=== PATIENT | female | born 1940 | race Caucasian/White ===

== ENCOUNTER 2020-12-12 18:34 | Emergency (ER) | payer MEDICARE, MEDICAID, SELFPAY ==
[~2020-12-12] VITALS: Ht 162.6 cm; Wt 63.5 kg
[2020-12-12 18:59] VITALS: BP_SYST 160
[2020-12-12 19:40] LABS: BASOPHILS % (AUTO) 0.4 % (0.0-2.0); EOSINOPHILS % (AUTO) 0.1 % (0.0-4.0); HEMATOCRIT 42.9 % (36-48); HEMOGLOBIN 14.3 g/dL (12.0-16.0); LYMPHOCYTES # (AUTO) 1.1 K/uL (1.0-5.5); LYMPHOCYTES % (AUTO) 14.4 % (20.5-51.5); MEAN CORPUSCULAR HEMOGLOBIN 30 pg (27-31); MEAN CORPUSCULAR HGB CONC 33 % (32-36); MEAN CORPUSCULAR VOLUME 90 fL (79.0-98.0); MONOCYTES # (AUTO) 0.9 K/uL (0.0-1.0); MONOCYTES % (AUTO) 11.5 % (1.7-9.3); NEUTROPHILS # (AUTO) 5.5 K/uL (1.8-7.7); NEUTROPHILS % (AUTO) 73.6 % (40.0-70.0); PLATELET COUNT (AUTO) 109 K/uL (130-430); RED BLOOD CELL COUNT(AUTO) 4.78 MIL/uL (4.2-6.2); RED CELL DISTRIBUTION WIDTH 13.4 % (9.0-15.0); WHITE BLOOD COUNT (AUTO) 7.5 K/uL (4.8-10.8)
[2020-12-12 20:00] LABS: ANION GAP 10 (5-15); CALCIUM 8.3 mg/dL (8.4-11.0); CHLORIDE 100 mmol/L (98-107); CREATININE 1.12 mg/dL (0.55-1.30); GLUCOSE 99 mg/dL (70-99); POTASSIUM 3.4 mmol/L (3.5-5.1); SODIUM SERUM 137 mmol/L (136-145); UREA NITROGEN, BLOOD 29 mg/dL (8-21)
[2020-12-12 20:07] LABS: ALANINE AMINOTRANSFERASE 60 U/L (12-78); ALBUMIN 3.4 g/dL (3.4-4.8); ASPARTATE AMINOTRANSFERASE 59 U/L (10-37); LACTATE DEHYDROGENASE 289 U/L (81-234); TOTAL BILIRUBIN 0.5 mg/dL (0.0-1.0)
[2020-12-12 20:35] LABS: PROTHROMBIN TIME 10.2 SECS (9.5-12.5)
[2020-12-12 21:45] VITALS: BP_SYST 144
[2020-12-12] MEDS ORDERED: LEVO175T7 PO (22:00)
[2020-12-12] MEDS ORDERED: ERGO50CA PO (22:02)
[2020-12-12] MEDS ORDERED: MEMA1CAP3 PO (22:03)
[2020-12-12] MEDS ORDERED: HYDR25TA4 PO (22:03)
[2020-12-12] MEDS ORDERED: ZINC50TA69 PO (22:04)
[2020-12-12] MEDS ORDERED: PHEDM120 PO (22:05)
[2020-12-12] MEDS ORDERED: GUAI-723 PO (22:06)
[2020-12-12] MEDS ORDERED: ALBU8.5H8 INH (22:06)
[2020-12-12] MEDS ORDERED: ACET-2634 PO (22:07)
[2020-12-13] MEDS ORDERED: DEXAMETHASONE SOD PHOSPHATE 10 MG/ML VIAL ONE (09:00)
[2020-12-13] MEDS ORDERED: ENOXAPARIN SODIUM 60 MG/0.6 ML SYRINGE ONE (09:01)
[2020-12-14] MEDS ORDERED: POTASSIUM CHLORIDE 20 MEQ TAB.PRT.SR ONE (14:33)
== END 2020-12-12 21:45 | disposition home or self-care (01) ==
LOC: SED 18:34
DX: U07.1 COVID-19 (principal); J80 Acute respiratory distress syndrome; I10 Essential (primary) hypertension; E07.9 Disorder of thyroid, unspecified; Z79.899 Other long term (current) drug therapy
CPT/HCPCS: 36415; 71045; 80053; 82550-TC; 82728; 82803-TC; 83605; 83615-TC; 83880; 84484; 85025; 85379; 85384-TC; 85610-TC; 85730-TC; 86140; 86886; 86900; 86901; 87040-TC; 93005; 99285; J1100; J1650; J7050